=== PATIENT | male | born 1985 | race Caucasian/White ===

== ENCOUNTER 2019-06-06 16:31 | Emergency (ER) | payer BC, SELFPAY ==
[2019-06-06 16:50] VITALS: BP 130/74; PULSE 65; RESP 18; TEMP 37.3; O2SAT 99
--- NOTE | 2019-06-06 17:33 | ED.URI ---
HPI - URI/Sore Throat General Chief Complaint: Upper Respiratory Infection Stated Complaint: congestion Source: patient Mode of arrival: ambulatory Limitations: no limitations History of Present Illness HPI Narrative: Patient is a 34-year-old male who presents complaining of facial pain and pressure x2 weeks. He also reports cough, sore throat intermittently, possible fever. Reports taking [id number] meds with limited relief. He denies chest pain or shortness of breath. MD elicited complaint: sinus pain Related Data Allergies Allergy/AdvReac Type Severity Reaction Status Date / Time Penicillins Allergy Unknown Verified 06/06/19 16:53 Review of Systems Review of Systems: Narrative: CONSTITUTIONAL: Denies fever, chills, or sweats. EYES: Denies visual changes, redness, or discharge. ENT: Denies rhinorrhea, or otalgia. Reports congestion, facial pain and intermittent sore throat. CARDIOVASCULAR: Denies chest pain, palpitations, or edema. RESPIRATORY: Denies cough or dyspnea. GASTROINTESTINAL: Denies abdominal pain, nausea, vomiting, or diarrhea. GENITOURINARY: Denies dysuria or hematuria. SKIN: Denies rash or itching. MUSCULOSKELETAL: Denies back pain, joint pain, or myalgia. NEUROLOGIC: Denies headache, numbness, dizziness, or weakness. PSYCHIATRIC: Denies anxiety or depression. [facility] Social History Social History (Updated 06/06/19 @ 17:35 by ROLF CornejoP) Smoking status: Never smoker Alcohol intake: current Alcohol use details: Socially Living arrangements: with family Occupation/Education: occupation Gender identity (if verbalized by the patient): Male Exam Narrative: Exam Narrative: GENERAL: Well-appearing, well-nourished, and in no acute distress. HEAD: Normocephalic, atraumatic. EYES: EOMI. No redness or drainage. Conjunctiva are normal. ENT: Mucous membranes pink and moist. Nares clear. No rhinorrhea. TMs normal bilaterally. Throat mild erythema. Uvula midline. Maxillary sinus tenderness with palpation. NECK: AROM. Supple. No lymphadenopathy. CHEST: No respiratory distress. Clear to auscultation. HEART: Regular rate and rhythm. No murmur appreciated. Normal peripheral pulses. SKIN: Warm, dry, no rash. NEURO: No focal deficits. Alert and oriented x3. Gait steady. PSYCH: Normal affect. No signs of depression or anxiety. Course Vital Signs Vital signs: Vital Signs Temperature 37.3 C 06/06/19 16:50 Pulse Rate 65 06/06/19 16:50 Respiratory Rate 18 06/06/19 16:50 Blood Pressure 130/74 06/06/19 16:50 Pulse Oximetry 99 06/06/19 16:50 Temperature 37.3 C 06/06/19 16:50 Pulse Rate 65 06/06/19 16:50 Respiratory Rate 18 06/06/19 16:50 Blood Pressure 130/74 06/06/19 16:50 Pulse Oximetry 99 06/06/19 16:50 MDM - URI/Sore Throat MDM Narrative Medical decision making narrative: Patient's most likely diagnosis is sinusitis. Due to the length of illness, patient to be treated with antibiotics at this time. Patient is aware of and agrees with plan of care. Patient is stable for discharge home with outpatient follow-up as directed. Differential Diagnosis Differential diagnosis: Likely upper respiratory infection, sinusitis, influenza and pharyngitis Critical Care Time Critical Care Time Critical Care Time: No Discharge Plan Discharge Clinical Impression: Sinusitis Qualifiers: Sinusitis location: maxillary Chronicity: acute Recurrence: not specified as recurrent Qualified Code(s): J01.00 - Acute maxillary sinusitis, unspecified Patient Disposition: Home, Self-Care Condition: Stable Instructions: Antibiotic Form, Sinusitis (ED) Prescriptions: New doxycycline monohydrate 100 mg capsule 100 mg PO BID 7 Days Qty: 14 RF: 0 Follow-up/Referrals: UNKNOWN,DOCTOR [Primary Care Provider] - Time of Disposition: 17:40
== END 2019-06-06 17:45 | disposition home or self-care (01) ==
PROVIDERS: Emergency Provider Nurse Practitioner
DX: J01.00 Acute maxillary sinusitis, unspecified (principal)
CPT/HCPCS: 99203; G0463

== ENCOUNTER 2022-11-04 16:39 | Outpatient (CLI) | payer BC, SELFPAY ==
--- NOTE | ~2022-11-04 | XR_ITS ---
Lumbosacral Spine: AP and lateral views Clinical History: Pain Findings: The normal lordotic curve is maintained. The vertebral bodies and posterior elements are i ntact. The intervertebral disc spaces are preserved. The sacroiliac joints are normally outlined. Impression: No significant abnormality. Reviewed, dictated and finalized at [facility]. Impression: No significant abnormality.
== END 2022-11-04 16:40 | disposition home or self-care (01) ==
PROVIDERS: PCP Internal Medicine; Visit Provider Internal Medicine
DX: M54.50 Low back pain, unspecified (principal)
CPT/HCPCS: 72100

== ENCOUNTER 2022-11-08 07:23 | Outpatient (CLI) | payer BC, SELFPAY ==
[2022-11-08 07:35] LABS: Basophils Absolute Auto 0.04 K/mm3 (0.00-0.10); Basophils Percent Auto 0.7 % (0.0-1.0); Eosinophils Absolute Auto 0.21 K/mm3 (0.02-0.50); Eosinophils Percent Auto 3.9 % (1.0-6.0); Hematocrit 44.4 % (40.0-54.0); Hemoglobin 15.2 g/dL (14.0-18.0); Immature Granulocyte Absolute 0.02 K/mm3 (0.00-0.00); Immature Granulocyte Percent A 0.4 % (0.0-0.0); Lymphocytes Absolute Auto 0.93 K/mm3 (1.10-4.50); Lymphocytes Percent Auto 17.1 % (18.0-42.0); Mean Corpuscular HGB Conc 34.2 g/dL (32.0-36.0); Mean Corpuscular Hemoglobin 30.3 pg (27.0-31.0); Mean Corpuscular Volume 88.4 fL (78.0-102.0); Mean Platelet Volume 9.7 fl (8.7-11.0); Monocytes Absolute Auto 0.71 K/mm3 (0.10-0.90); Monocytes Percent Auto 13.1 % (2.0-11.0); Neutrophils Absolute Auto 3.5 K/mm3 (1.7-7.2); Neutrophils Percent Auto 64.8 % (50.0-70.0); Platelet Count Result 179 K/mm3 (150-420); Red Blood Count 5.02 M/mm3 (4.70-6.10); Red Cell Distribution Width 12.1 % (11.6-14.4); White Blood Count 5.4 K/mm3 (4.8-10.8)
[2022-11-08 08:10] LABS: Alanine Aminotransferase 32 U/L (16-63); Albumin Level 3.7 g/dL (3.4-5.0); Alkaline Phosphatase 62 U/L (46-116); Anion Gap 6 mmol/L (8-16); Aspartate Amino Transferase 20 U/L (15-37); Bilirubin,Total 0.5 mg/dL (0.00-1.00); Blood Urea Nitrogen 30 mg/dL (7-18); Calcium 8.9 mg/dL (8.5-10.1); Carbon Dioxide 29 mmol/L (21-32); Chloride 107 mmol/L (98-108); Cholesterol 212 mg/dL (0-200); Estimated Glomerular Filt Rate > 60; Glucose 96 mg/dL (70-99); HDL Direct 49 mg/dL (40-60); LDL Cholesterol Calculated 144 mg/dL (<130); Osmolality Calculated 300 mOsm/kg (285-295); Potassium 4.4 mmol/L (3.5-5.1); Sodium 142 mmol/L (136-145); Thyroid Stimulating Hormone 1.14 uIU/mL (0.36-3.74); Total Protein 6.3 g/dL (6.4-8.2); Triglycerides 97 mg/dL (0-150)
[2022-11-08 11:22] LABS: Appearance Urine Clear (Clear); Bilirubin Urine Negative (Negative); Blood Urine Negative (Negative); Color Urine Yellow (Yellow); Glucose Urine UA Negative (Negative); Ketones Urine Negative (Negative); Leukocyte Esterase Ur Negative (Negative); Nitrate Urine Negative (Negative); Protein Urine Negative (Negative); Urobilinogen Urine 0.2 mg/dL (0.2-1.0)
[2022-11-08 11:25] LABS: Add Urine Microscopic? NO
== END 2022-11-08 07:24 | disposition home or self-care (01) ==
LOC: CHSLAB 07:24
PROVIDERS: PCP Internal Medicine; Visit Provider Internal Medicine
DX: Z00.00 Encounter for general adult medical examination without abnormal findings (principal); M54.50 Low back pain, unspecified
CPT/HCPCS: 36415; 80053; 80061; 81003; 84443; 85025

== ENCOUNTER 2024-02-22 09:51 | Outpatient (CLI) | payer BC, SELFPAY ==
--- NOTE | ~2024-02-22 | XR_ITS ---
3 VIEWS LUMBAR SPINE Ordering provider: Evon Mccarty, [employer] ADMINISTRATOR History: . Low back pain radiates down LT leg X 3 days . Comparison: None. FINDINGS: VERTEBRAL BODIES: No visible fracture or subluxation. Bending of the coccyx. DISK SPACES: Normal. SOFT TISSUES: Normal. IMPRESSION: No acute osseous abnormality lumbar spine. Reviewed, dictated and finalized at location [facility]. O CLERK
== END 2024-02-22 09:52 | disposition home or self-care (01) ==
LOC: CHSIMG 09:55
PROVIDERS: PCP Internal Medicine; Visit Provider Nurse Practitioner Family
DX: M54.16 Radiculopathy, lumbar region (principal)
CPT/HCPCS: 72100

== ENCOUNTER 2024-02-29 12:31 | Outpatient (RCR) | payer BC, SELFPAY ==
--- NOTE | 2024-02-29 13:43 | PTOPEVAL1 ---
Assessment and note entered by Tino Oseguera Evaluation Information Assessment Status Evaluation ICD-10 Condition Codes (PT) M54.16 Onset 02/13/24 Subjective Information Pt. reports that he injured his back after bending forward and twisting. He states that pain worsened that day and pain began to radiate down the left leg. He reports that his left foot is currently numb. Pt. reports that he does have some weakness in the left leg. 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 He reports that pain is increased with attempting to lay flat. he reports that he has lost some sleep, but sleeping has improved since initial injury. He reports he is not currently taking medication, and states that he will get relief from back pain with use of ice pack. Pt. reports that he did take a steroid dose pack last week with no relief. He reports that his goal is to reduce his low back pain. Reported Pain Level Pain Score 0: Self Report Assessment PT Clinical Summary Pt. is a 38 year old male who enters the clinic due to lumbar radiculopathy. He presents with impaired l.e. strength, impaired postural awareness, functional decline and pain. Continued skilled PT is indicated in order to improve these areas to allow the pt. to be able to participate in all IADL's with improved comfort and efficiency . Plan of Care Interventions Electrical Stimulation,Hot Pack/Cold Pack,Manual Therapy,Mechanical Traction,Neuro Re-education, Patient/Caregiver Educati,Therapeutic Activities, Therapeutic Exercise PT Services Indicated Yes Treatment Frequency and 2x/week x 12 visits Duration These treatments will address the objective and functional deficits as defined above. The patient will be advanced safely and appropriately in order for the patient to progress towards his/her prior level of function. Additional exercises will be introduced and as well as a comprehensive home exercise program upon discharge, if needed, ?to ensure carryover of functional gains achieved in the clinic. This treatment plan has been reviewed and agreement upon by the patient.
--- NOTE | 2024-02-29 13:44 | OPREHPOC ---
Outpatient Therapy Plan of Care This is a Multidisciplinary Plan of Care that may contain components documented by all disciplines (PT, OT, and ST.) PT Problem 1 PT Problem #1 Knowledge Deficit PT Goal 1 Goal / Goal Update Pt. will be independent with a HEP addressing posture and mobility. Target Visit 2 PT Problem 2 PT Problem #2 Impaired Flexibility PT Goal 1 Goal / Goal Update Pt. will increase hamstring flexibility to 20 degrees from full knee extension Pt. will be able to safely reach to the floor with no back pain and proper mechanics. Target Visit 12 PT Problem 3 PT Problem #3 Impaired Functional Mobil PT Goal 1 Goal / Goal Update Pt. will be able to safely lift 25# from floor to waist for 10r reps with proper mechanics Pt. will ambulate over level surface without deviation. Target Visit 12 PT Problem 4 PT Problem #4 Impaired Strength PT Goal 1 Goal / Goal Update Pt. will present with 5/5 left hip abduction and left ankle dorsiflexion Pt. will complete 10 single limb heel raises on the left. Target Visit 12
--- NOTE | 2024-03-31 15:54 | OPREHPOC ---
Outpatient Therapy Plan of Care This is a Multidisciplinary Plan of Care that may contain components documented by all disciplines (PT, OT, and ST.) PT Problem 1 PT Problem #1 Knowledge Deficit PT Goal 1 Goal / Goal Update Pt. will be independent with a HEP addressing posture and mobility. Target Visit 2 Progress Met PT Problem 2 PT Problem #2 Impaired Flexibility PT Goal 1 Goal / Goal Update Pt. will increase hamstring flexibility to 20 degrees from full knee extension Pt. will be able to safely reach to the floor with no back pain and proper mechanics. Target Visit 12 Progress Partially Met PT Goal 2 Goal / Goal Update Continue PT Problem 3 PT Problem #3 Impaired Functional Mobility PT Goal 1 Goal / Goal Update Pt. will be able to safely lift 25# from floor to waist for 10r reps with proper mechanics -met Pt. will ambulate over level surface without deviation. -met Target Visit 12 Progress Met PT Problem 4 PT Problem #4 Impaired Strength PT Goal 1 Goal / Goal Update Pt. will present with 5/5 left hip abduction and left ankle dorsiflexion -progress towards Pt. will complete 10 single limb heel raises on the left. -met Target Visit 12 Progress Partially Met PT Goal 2 Goal / Goal Update continue #1
--- NOTE | 2024-03-31 15:54 | PTOPPROG ---
Assessment and note entered by Anastasia Mcginnis, PT Evaluation Information Assessment Status Progress ICD-10 Condition Codes (PT) Radiculopathy, lumbar region M54.16 Onset 02/13/24 Subjective Information Patient reports he is doing better overall. 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 Assessment PT Clinical Summary Primitivo Zurita has completed 10 skilled PT visits for lumbar radiculopathy. He is reporting a decrease in his symptoms with numbness and tingling only occurring occasionally when sitting in his truck for long periods. He is demonstrating improved LE strength with some lingering weakness noted in the left hip and ankle as well as continued tightness in the hamstring muscles. He is progressing toward his goals well and will continue to benefit from skilled PT per original POC. Plan of Care Interventions Mechanical Traction,Patient/Caregiver Education, Therapeutic Exercise PT Services Indicated Yes Treatment Frequency and Continue per original POC for 2 additional visits Duration These treatments will address the objective and functional deficits as defined above. The patient will be advanced safely and appropriately in order for the patient to progress towards his/her prior level of function. Additional exercises will be introduced and as well as a comprehensive home exercise program upon discharge, if needed, ?to ensure carryover of functional gains achieved in the clinic. This treatment plan has been reviewed and agreement upon by the patient.
--- NOTE | 2024-04-07 15:41 | OPREHPOC ---
Outpatient Therapy Plan of Care This is a Multidisciplinary Plan of Care that may contain components documented by all disciplines (PT, OT, and ST.) PT Problem 1 PT Problem #1 Knowledge Deficit PT Goal 1 Goal / Goal Update Pt. will be independent with a HEP addressing posture and mobility. Target Visit 2 Progress Met PT Problem 2 PT Problem #2 Impaired Flexibility PT Goal 1 Goal / Goal Update Pt. will increase hamstring flexibility to 20 degrees from full knee extension Pt. will be able to safely reach to the floor with no back pain and proper mechanics. Target Visit 12 Progress Met PT Goal 2 Goal / Goal Update Continue PT Problem 3 PT Problem #3 Impaired Functional Mobility PT Goal 1 Goal / Goal Update Pt. will be able to safely lift 25# from floor to waist for 10r reps with proper mechanics -met Pt. will ambulate over level surface without deviation. -met Target Visit 12 Progress Met PT Problem 4 PT Problem #4 Impaired Strength PT Goal 1 Goal / Goal Update Pt. will present with 5/5 left hip abduction and left ankle dorsiflexion -met Pt. will complete 10 single limb heel raises on the left. -met Target Visit 12 Progress Met PT Goal 2 Goal / Goal Update continue #1
--- NOTE | 2024-04-07 15:41 | PTOPDC ---
Assessment and note entered by Anastasia Mcginnis, PT Evaluation Information Assessment Status Discharge ICD-10 Condition Codes (PT) Radiculopathy, lumbar region M54.16 Onset 02/13/24 Subjective Information Primitivo reports his back pain went away early on after starting PT and he has just been having numbness and stiffness in his left leg. He notes his mobility has improved and he is stronger now too. He has not been noticing numbness either lately and has been able to perform full duty work activities. Reported Pain Level Pain Score 0: Self Report Assessment PT Clinical Summary Primitivo Zurita has completed 12 skilled PT visits for lumbar radiculopathy. He is reporting resolved pain, less numbness, and improved strength and mobility in the left LE. He has been performing all daily and work activities without difficulty. He objectively demonstrates improved lumbar AROM, improved bilateral hamstring flexibility, improved left LE strength, and improved body mechanics with functional lifts. He is independent in a home exercise program to continue core strength, hamstring flexibility, and proper body mechanics. He has met all goals and will be discharged. Plan of Care PT Services Indicated No
== END 2024-04-07 16:56 | disposition home or self-care (01) ==
LOC: CHSPT 12:31
PROVIDERS: Visit Provider Nurse Practitioner Family
DX: M54.16 Radiculopathy, lumbar region (principal)
CPT/HCPCS: 97012; 97110; 97112; 97161; 97750